=== PATIENT | male | born 1975 | race Caucasian/White ===

== ENCOUNTER 2016-07-13 13:37 | Emergency (ER) | payer SELFPAY | END 2016-07-13 13:40 | disposition left against medical advice (07) | LOC: ED 13:37 | DX: M25.511 Pain in right shoulder (principal); Z53.21 Procedure and treatment not carried out due to patient leaving prior to being seen by health care provider ==

== ENCOUNTER 2016-07-17 16:18 | Emergency (ER) | payer SELFPAY ==
[2016-07-17 16:31] VITALS: BP 170/97; PULSE 82; TEMP 98.2; BMI 33.7
--- NOTE | 2016-07-17 16:58 | DIRPT ---
CLINICAL DATA: Weight lifting injury, persistent pain EXAM: RIGHT SHOULDER - 2+ VIEW COMPARISON: None available FINDINGS: There is no evidence of fracture or dislocation. There is no evidence of arthropathy or other focal bone abnormality. Soft tissues are unremarkable. IMPRESSION: No acute finding by plain radiography Electronically Signed By: Liseth Ruiz M.D. On: 07/17/2016 16:55
[2016-07-17] MEDS ORDERED: IBUPROFEN 800 MG TAB PO ONE (17:27)
--- NOTE | 2016-07-17 17:31 | EDPRACDOC ---
- General Information Chief Complaint: Shoulder Pain Stated Complaint: SHOULDER PAIN Time Seen by Provider: 07/17/16 17:19 Mode of Arrival: Car Home Medications: Home Medications Oxycodone Immediate Release [Oxycodone Immediate Release (OxyIR)] 5 mg PO Q6H PRN #30 tab 07/17/16 Allergies/Adverse Reactions: Allergies Allergy/AdvReac Type Severity Reaction Status Date / Time ketamine Allergy See Verified 07/17/16 16:30 Comments meperidine [From Demerol] Allergy Nausea/Vomi Verified 07/17/16 16:30 ting - History of Present Illness Onset: 1 DAY HPI: PT PRESENTS WITH RIGHT SHOULDER PAIN. STATES HE LIFTED A 50 LB WEIGHT WITH THE RIGHT ARM TWO DAYS AGO AND HEARD A POP AND HAS HAD PAIN SINCE THAT TIME. PT HAS 2+ RADIAL PULSE, BRISK CAP REFILL, LIMITED ROM. Description: Reports: With Use, At Rest, Intermittently, At Night Location: Reports: Right, Lateral, Anterior Circumstances: Reports: Sporting Relevant History: Reports: None Tetanus Up To Date?: No Dominant Hand: Left Pain Severity: Moderate Able to Move Shoulder?: No Associated Signs & Symptoms: Reports: None ED Past Medical History - History Reviewed Yes Nurses notes reviewed and agree except as marked EDM Review of Systems - Review of Systems ROS Negative Except as Marked: Yes All systems reviewed and were negative except as marked - Physical Exam Constitutional: Alert Oriented to: Time, Person, Place Last recorded Vital Signs: Last Vital Signs Temp 98.2 F 07/17/16 16:25 Pulse 82 07/17/16 16:25 Resp 18 07/17/16 16:25 BP 170/97 07/17/16 16:25 Pulse Ox 95 07/17/16 16:25 Oxygen Pulse Oxygen Saturation 95 O2 Device Room Air Oxygen Flow Rate Fraction of Inspired Oxygen ( FIO2) - HEENT Head: Normal ( normocephalic) Eye Exam: Normal (PERRL, EOMI, Sclera white) Oropharynx: Normal (Pharynx:Moist without exudate,Gums-no swelling) Nose: No Symptoms Reported (septum midline) Neck: Normal (FROM, trachea at midline) - Respiratory/Cardiovascular Respiratory: Normal - CTA (BBS clear to auscultation without adventitious sounds ) Cardiovascular: Normal (RRR without murmur, gallop or rub) - GI Auscultation: Normal (NABS) Palpation: Normal (Soft,No rebound or guarding, non distended) Tenderness: Non tender Merrill's Sign: Negative Rectal Exam: Deferred - Musculoskeletal Back: Normal (Non-Tender) Extremities: Normal (Normal tone, Pulses 2+ No cyanosis or edema, FROM) - Integumentary Skin: Normal, Warm, Dry Lymphatics: Normal (no adenopathy) - Neurologic Memory Impaired: Normal Motor Function: Normal (Normal tone, Pulses 2+ No cyanosis or edema, FROM) Cranial Nerve: Normal (CN II-X11 intact sensation, strength 5/5) Cerebellar: Normal Mood Description: Normal Perception: Normal ED Shoulder Problem Exam - Musculoskeletal Clavicle: Normal Shoulder: Swelling, Limited ROM, Tender Drop arm test: Negative (PT WILL NOT MOVE ARM) Impingement test: Negative (PT WILL NOT MOVE ARM) Arm: Normal Distal Function/Circulation: Normal - Differential Diagnosis AC separation, Rotator cuff injury Decision Time to Discharge: 17:33 - Departure Disposition: Home Condition: Stable Final Diagnosis: Rotator cuff injury Qualifiers: Encounter type: initial encounter Laterality: right Qualified Code(s): S46.001A - Unspecified injury of muscle(s) and tendon(s) of the rotator cuff of right shoulder, initial encounter Instructions: RICE: Routine Care for Injuries, Rotator Cuff Injury (ED) Education/Counseling Given To: Patient Education/Counseling Given Regarding: Diagnosis, Treatment, Prognosis, Follow Up Referrals: Coleman Bailey DO [Staff Physician] - One Week Prescriptions: Oxycodone Immediate Release [Oxycodone Immediate Release (OxyIR)] 5 mg PO Q6H PRN #30 tab PRN Reason: Pain Forms: Excuse Note Additional Instructions: ICE MUCH POSSIBLE. FOLLOW UP WITH ORTHOPEDIC. WEAR SLING FOR PAIN RELIEF
== END 2016-07-17 17:45 | disposition home or self-care (01) ==
LOC: ED 16:18 → EDMC 17:45
DX: S46.001A Unspecified injury of muscle(s) and tendon(s) of the rotator cuff of right shoulder, initial encounter (principal); X58.XXXA Exposure to other specified factors, initial encounter; Y93.89 Activity, other specified
CPT/HCPCS: 73030; 99282; J3490

== ENCOUNTER 2016-07-26 12:29 | Emergency (ER) | payer SELFPAY ==
[2016-07-26 12:46] VITALS: BP 148/70; PULSE 68; TEMP 98.5; BMI 33.3
--- NOTE | 2016-07-26 13:48 | EDPRACDOC ---
- General Information Stated Complaint: RT SHOULDER PAIN NO RECENT INJURY Time Seen by Provider: 07/26/16 13:29 Home Medications: Home Medications Oxycodone Immediate Release [Oxycodone Immediate Release (OxyIR)] 5 mg PO Q6H PRN #30 tab 07/17/16 Meloxicam [Mobic] 7.5 mg PO BID #20 tab 07/26/16 Allergies/Adverse Reactions: Allergies Allergy/AdvReac Type Severity Reaction Status Date / Time ketamine Allergy See Verified 07/26/16 13:48 Comments meperidine [From Demerol] Allergy Nausea/Vomi Verified 07/26/16 13:48 ting - History of Present Illness Onset: 9 DAYS HPI: PT PRESENTS TODAY WITH CONTINUED RIGHT SHOULDER PAIN. PT STATES THAT HE WAS SEEN HERE RECENTLY AND DX WITH ROTATOR CUFF INJURY, GIVEN SLING/SWATH AND PAIN MEDICATION. HAS NOT FOLLOWED UP WITH ORTHO D/T FINANCES. WORKS FOR THE [employer] AND TRAVELS A LOT. NO APPARENT DISTRESS. NO REPORTED NEW INJURY OR SYMPTOMS. Description: Reports: With Use Location: Reports: Right, Lateral Circumstances: Reports: Sporting (LIFTING) Relevant History: Reports: None Tetanus Up To Date?: No Pain Severity: Moderate Able to Move Shoulder?: Yes Associated Signs & Symptoms: Reports: None ED Past Medical History - History Reviewed Yes Nurses notes reviewed and agree except as marked - Patient Medical History Psychological History: Denies: Depression - Social Medical History Smoking Status: Heavy tobacco smoker (5 or more cigarettes/day or daily pipe/ cigar) EDM Review of Systems - Review of Systems ROS Negative Except as Marked: Yes All systems reviewed and were negative except as marked Constitutional: No Symptoms Reported Respiratory: No Symptoms Reported Cardiovascular: No Symptoms Reported Gastrointestinal: No Symptoms Reported Neurological: No Symptoms Reported Musculoskeletal: Shoulder Integumentary: No Symptoms Reported - Physical Exam Constitutional: Alert (Awake), No apparent distress Oriented to: Time, Person, Place Last recorded Vital Signs: Last Vital Signs Temp 98.5 F 07/26/16 12:45 Pulse 68 07/26/16 12:45 Resp 20 07/26/16 12:45 BP 148/70 07/26/16 12:45 Pulse Ox 97 07/26/16 12:45 Oxygen Pulse Oxygen Saturation 97 O2 Device Oxygen Flow Rate Fraction of Inspired Oxygen ( FIO2) - HEENT Head: Normal Eye Exam: Normal Neck: Normal, Denies Pain, Midline - Respiratory/Cardiovascular Respiratory: Normal - CTA Cardiovascular: Normal - GI Palpation: Normal Tenderness: Non tender - Musculoskeletal Back: Normal Extremities: Other (NOTED THERE MIGHT BE A SLIGHT DROOP TO PTS RIGHT SHOULDER, BUT DIFFICULT TO TELL IF THIS IS PHYSIOLOGICAL OR SIMPLY A MATTER OF PTS POSITION; PT WILL NOT SIT UP STRAIGHT; WILL NOT MOVE SHOULDER; NO PALPATED DEFORMITY; RADIAL PULSES NORMAL) - Integumentary Skin: Normal Lymphatics: Normal - Neurologic Cerebellar: Normal Mood Description: Normal Thought: Coherent Perception: Normal ED Shoulder Problem Exam - Musculoskeletal Clavicle: Normal Shoulder: Tender Arm: Normal Distal Function/Circulation: Normal Decision Time to Discharge: 13:47 - Departure Disposition: Home Condition: Good Final Diagnosis: Rotator cuff injury Qualifiers: Encounter type: subsequent encounter Laterality: right Qualified Code(s): S46.001D - Unspecified injury of muscle(s) and tendon(s) of the rotator cuff of right shoulder, subsequent encounter Education/Counseling Given To: Patient Education/Counseling Given Regarding: Diagnosis, Treatment, Follow Up Referrals: None,No Provider [Primary Care Provider] - One Week Galileo Gill MD [Staff Physician] - One Week Alphonse Melendez MD [Staff Physician] - One Week Prescriptions: New Meloxicam [Mobic] 7.5 mg PO BID #20 tab No Action Oxycodone Immediate Release [Oxycodone Immediate Release (OxyIR)] 5 mg PO Q6H PRN #30 tab PRN Reason: Pain Additional Instructions: PLEASE CONTINUE TO WEAR SLING AND FOLLOW UP WITH [facility] TO HELP WITH GETTING AN MRI FOR YOUR SHOULDER.
== END 2016-07-26 13:53 | disposition home or self-care (01) ==
LOC: EDMC 12:29
DX: S46.001D Unspecified injury of muscle(s) and tendon(s) of the rotator cuff of right shoulder, subsequent encounter (principal); X58.XXXD Exposure to other specified factors, subsequent encounter
CPT/HCPCS: 99282